=== PATIENT | male | born 1990 | race Caucasian/White ===

== ENCOUNTER 2018-08-23 03:49 | Emergency (ER) | payer MEDICAID ==
[~2018-08-23] VITALS: Ht 177.8 cm; Wt 92.5 kg
[2018-08-23] MEDS ORDERED: LIDOCAINE-MPF 1%, 5ML ONE (03:59)
[2018-08-23] MEDS ORDERED: LIDOCAINE-MPF 1%, 5ML INFIL ONE (04:00)
[2018-08-23] MEDS ORDERED: HYDROcodone/APAP 5/325 TABLET ONE (04:11)
[2018-08-23] MEDS ORDERED: HYDROcodone/APAP 5/325 TABLET PO ONE (04:30)
[2018-08-23] MEDS ORDERED: BACITRACIN ZINC OINT 500U/GM, 0.9 GM ONE (05:01)
[2018-08-23 05:16] VITALS: BP 138/87
== END 2018-08-23 05:18 | disposition home or self-care (01) ==
LOC: ED 04:56
DX: S61.011A Laceration without foreign body of right thumb without damage to nail, initial encounter (principal); X58.XXXA Exposure to other specified factors, initial encounter; Y93.89 Activity, other specified; Y92.009 Unspecified place in unspecified non-institutional (private) residence as the place of occurrence of the external cause; Y99.8 Other external cause status
CPT/HCPCS: 12041; 99284

== ENCOUNTER 2020-02-15 21:10 | Emergency (ER) | payer MEDICAID ==
[~2020-02-15] VITALS: Ht 180.3 cm; Wt 80.0 kg
[2020-02-15 21:21] VITALS: BP 155/87
== END 2020-02-15 23:20 | disposition home or self-care (01) ==
LOC: ED 21:44
DX: Z00.00 Encounter for general adult medical examination without abnormal findings (principal); F17.200 Nicotine dependence, unspecified, uncomplicated
CPT/HCPCS: 36415; 86705; 86706; 86803; 87340; 87806; 99283; G0475

== ENCOUNTER 2020-11-25 21:20 | Emergency (ER) | payer MEDICAID ==
[~2020-11-25] VITALS: Ht 180.3 cm; Wt 86.0 kg
--- NOTE | 2020-11-25 22:14 | NUR ---
PT NOW SLEEPING. CONNECTED TO ALL CARDIAC MONITORS. VSS. PT AWAKENS EASILY
[2020-11-25 23:00] VITALS: BP 123/79
--- NOTE | 2020-11-25 23:31 | NUR ---
PT DRESSED AND REQUESTING TO LEAVE. STATES HIS RIDE IS HERE AND DOESN'T WANT TO WALK HOME. VSS, PT NEVER NEEDING OXYGEN WHILE HERE. PT FULLY AWAKE AND ALERT. DR LOZADA AWARE.
== END 2020-11-26 00:05 | disposition home or self-care (01) ==
LOC: ED 23:45
DX: T40.1X1A Poisoning by heroin, accidental (unintentional), initial encounter (principal); F17.210 Nicotine dependence, cigarettes, uncomplicated; Y92.9 Unspecified place or not applicable
CPT/HCPCS: 71045; 99406